=== PATIENT | female | born 1985 | race African-American/Black ===

== ENCOUNTER 2017-01-01 14:01 | Emergency (ER) | payer OTHER ==
[~2017-01-01] VITALS: Ht 157.5 cm; Wt 90.7 kg
[2017-01-01 16:01] LABS: URINE BILIRUBIN NEGATIVE (Negative); URINE BLOOD NEGATIVE (Negative); URINE COLOR YELLOW; URINE GLUCOSE-RANDOM* NEGATIVE (Negative); URINE KETONES NEGATIVE (Negative); URINE LEUKOCYTES-REFLEX NEGATIVE (Negative); URINE PROTEIN (DIPSTICK) NEGATIVE (Negative); URINE SPECIFIC GRAVITY 1.015 (1.003-1.035); URINE UROBILINOGEN 0.2 E.U./dl (0.2-1.0)
[2017-01-01] MEDS ORDERED: FLAGYL500 MG PO (16:09)
[2017-01-01 16:43] VITALS: BP 125/83
[2017-01-02 15:06] LABS: CHLAMYDIA TRACHOMATIS-PCR Negative (Negative); NEISSERIA GONORRHEA-PCR Negative (Negative)
== END 2017-01-01 16:45 | disposition home or self-care (01) ==
LOC: ER 14:01
PROVIDERS: Emergency Medicine
DX: N89.8 Other specified noninflammatory disorders of vagina (principal); F10.99 Alcohol use, unspecified with unspecified alcohol-induced disorder

== ENCOUNTER 2017-04-03 16:24 | Emergency (ER) | payer OTHER ==
[~2017-04-03] VITALS: Ht 157.5 cm; Wt 90.7 kg
[~2017-04-03 16:24] MED LIST: FLAGYL500 MG PO
[2017-04-03 16:44] LABS: URINE BILIRUBIN NEGATIVE (Negative); URINE BLOOD NEGATIVE (Negative); URINE CLARITY CLEAR; URINE COLOR YELLOW; URINE GLUCOSE-RANDOM* NEGATIVE (Negative); URINE KETONES NEGATIVE (Negative); URINE LEUKOCYTES-REFLEX NEGATIVE (Negative); URINE NITRITE-REFLEX NEGATIVE (Negative); URINE PROTEIN (DIPSTICK) NEGATIVE (Negative); URINE SPECIFIC GRAVITY 1.015 (1.005-1.035); URINE UROBILINOGEN 0.2 E.U./dl (0.2-1.0)
[2017-04-03 17:01] LABS: ABSOLUTE NEUTROPHILS 3.8 thou/uL (1.4-8.2); BASOPHILS 0.8 % (0.0-2.0); EOSINOPHILS 2.8 % (0.0-3.0); HEMATOCRIT 39.4 % (37.0-47.0); HEMOGLOBIN 13.4 gm/dL (12.0-15.0); LYMPHOCYTES 26.2 % (24.0-44.0); MCH 31.3 pg (26.0-34.0); MCHC 33.9 g/dL (28.0-37.0); MCV 92.2 fL (80.0-100.0); PLATELET COUNT 228 thou/uL (150-400); POLYS 61.2 % (36.0-66.0); RBC 4.27 mil/uL (4.20-5.00); RDW 13.2 % (10.5-14.5); WBC 6.1 thou/uL (4.0-11.0)
[2017-04-03 17:07] LABS: CALCIUM 9.3 mg/dL (8.5-10.1); POTASSIUM 4.6 mmol/L (3.5-5.1)
[2017-04-03] MEDS ORDERED: MOBIC15 MG PO (17:55)
[2017-04-03] MEDS ORDERED: FLAGYL500 MG PO (17:55)
== END 2017-04-03 18:14 | disposition home or self-care (01) ==
LOC: ER 16:24
PROVIDERS: Physician Assistant
DX: N76.0 Acute vaginitis (principal)